=== PATIENT | female | born 1990 | race African-American/Black ===

== ENCOUNTER → 2020-04-22 11:40 | Outpatient (BNVA) | payer OTHER, SELFPAY | PROVIDERS: Visit Provider Internal Medicine Gastroenterology | DX: Z76.89 Persons encountering health services in other specified circumstances (principal) ==

== ENCOUNTER 2020-07-16 07:25 | Day surgery (SDC) | payer OTHER, SELFPAY ==
[2020-07-10 10:05] VITALS: BMI 18.0
--- NOTE | 2020-07-14 14:53 | P.CONAN_ITS ---
Documented by User: Bonnie Burgos 07/14/20 14:54 HPI - Anesthesia Eval Consult details Narrative: 30yo F for Upper Endoscopy PMFSH Active Problems Active Problems: All Active Problems (Updated 07/10/20 @ 10:08 by Marie Alcantar) Gastroparesis (Acute) Past Medical History Medical History (Updated 07/10/20 @ 10:08 by Marie Alcantar) Anemia Asthma Depression DVT (deep venous thrombosis) GERD (gastroesophageal reflux disease) History of anxiety History of COVID-19 History of headache Hx of bipolar disorder Peptic ulcer Thyroid disease Family History Family History (Updated 04/22/20 @ 11:44 by Anai Bucio [facility]) Mother Anemia Vitamin D deficiency Carpal tunnel syndrome Father No problems noted. Maternal Grandmother COPD (chronic obstructive pulmonary disease) Asthma Arthritis CHF (congestive heart failure) Surgical History Surgical History (Updated 07/10/20 @ 09:55 by Marie Alcantar) History of esophagogastroduodenoscopy History of gastric surgery Social History Social History (Updated 07/10/20 @ 09:53 by Marie Alcantar) Smoking Status: Never smoker Use of substances other than those prescribed or required for medical reasons: Yes Substance Use Type: Marijuana Substance Use Type Other:: medical marijuana Substance Use Frequency: Daily Advance Directives Information Provided: No Recently lost weight without trying: Yes Meds Allergies Allergy/AdvReac Type Severity Reaction Status Date / Time lactose Allergy Intermediate stomach Verified 04/22/20 11:42 pain, constipation lamotrigine [From Lamictal] AdvReac Intermediate rash Verified 04/22/20 11:42 Home Medications Medication Instructions Recorded Confirmed Last Taken Type albuterol sulfate [ProAir HFA] 2 puff INHALATION QID PRN 07/10/20 07/10/20 Unknown History aripiprazole 1 tab PO BEDTIME 07/10/20 07/10/20 Unknown History buspirone 1 tab PO TID 07/10/20 07/10/20 Unknown History carbamazepine 1 cap PO BID 07/10/20 07/10/20 Unknown History ferrous sulfate 1 tab PO DAILY 07/10/20 07/10/20 Unknown History metoclopramide HCl 1 tab PO QID 07/10/20 07/10/20 Unknown History mirtazapine 15 mg PO QAM 07/10/20 07/10/20 Unknown History Exam Exam Date and Time: July 14, 2020 1453 Height,Weight and Vital Signs: Height 5 ft 3 in Weight 46.266 kg Assessment and Plan Assessment Anesthesia Assessment: Chart Reviewed Documented by User: Lashon Camp 07/16/20 07:50 [facility] Past Medical History Medical History (Updated 07/10/20 @ 10:08 by Marie Alcantar) Anemia Asthma Depression DVT (deep venous thrombosis) GERD (gastroesophageal reflux disease) History of anxiety History of COVID-19 History of headache Hx of bipolar disorder Peptic ulcer Thyroid disease Family History Family History (Updated 04/22/20 @ 11:44 by Anai Bucio [facility]) Mother Anemia Vitamin D deficiency Carpal tunnel syndrome Father No problems noted. Maternal Grandmother COPD (chronic obstructive pulmonary disease) Asthma Arthritis CHF (congestive heart failure) Surgical History Surgical History (Updated 07/10/20 @ 09:55 by Marie Alcantar) History of esophagogastroduodenoscopy History of gastric surgery Social History Social History (Updated 07/10/20 @ 09:53 by Marie Alcantar) Smoking Status: Never smoker Use of substances other than those prescribed or required for medical reasons: Yes Substance Use Type: Marijuana Substance Use Type Other:: medical marijuana Substance Use Frequency: Daily Advance Directives Information Provided: No Recently lost weight without trying: Yes Meds Allergies Allergy/AdvReac Type Severity Reaction Status Date / Time lactose Allergy Intermediate stomach Verified 04/22/20 11:42 pain, constipation lamotrigine [From Lamictal] AdvReac Intermediate rash Verified 04/22/20 11:42 Home Medications Medication Instructions Recorded Confirmed Last Taken Type albuterol sulfate [ProAir HFA] 2 puff INHALATION QID PRN 07/10/20 07/10/20 Unknown History aripiprazole 1 tab PO BEDTIME 07/10/20 07/10/20 Unknown History buspirone 1 tab PO TID 07/10/20 07/10/20 Unknown History carbamazepine 1 cap PO BID 07/10/20 07/10/20 Unknown History ferrous sulfate 1 tab PO DAILY 07/10/20 07/10/20 Unknown History metoclopramide HCl 1 tab PO QID 07/10/20 07/10/20 Unknown History mirtazapine 15 mg PO QAM 07/10/20 07/10/20 Unknown History Exam Airway Mallampati Class: I (Broken tooth laterally) TM Dist: >3cm Neck ROM: Full Heart: RRr Lungs: CTa BL Assessment and Plan Assessment Anesthesia Assessment: Anesthesia Plan Discussed and Chart Reviewed Final Anesthetic Review NPO: Yes ASA Class: II Final Preanesthetic Review: No Changes in Pt Med Stat and Consent Obtained/Reviewed Patient Risk: Intermediate Procedure Risk: Intermediate Anesthetic Plan Anesthetic Plan: MAC: Disposition: Standard PACU
[2020-07-16 07:46] LABS: UPreg QC Valid YES; Urine Pregnancy NEGATIVE (NEGATIVE)
--- NOTE | 2020-07-16 07:50 | P.HPSUR_ITS ---
Pre-Procedural Eval Section B Chief Complaint: Gastroparesis Relevant Family History (Specify if Yes): No Relevant Social History: Other (specify) (THC) Present Medications: see Short Stay Collaborative assessment Medical History: Significant History (Anemia Asthma Depression DVT (deep venous thrombosis) GERD (gastroesophageal reflux disease) History of anxiety History of COVID-19 History of headache Hx of bipolar disorder Peptic ulcer Thyroid diseas e) History of Previous Operations: Relevant previous surgery/procedure and date(s) (pyloric myotomy) Allergies: Allergies Allergy/AdvReac Type Severity Reaction Status Date / Time lactose Allergy Intermediate stomach Verified 04/22/20 11:42 pain, constipation lamotrigine [From Lamictal] AdvReac Intermediate rash Verified 04/22/20 11:42 Review of Systems Sugical H&P ROS: Negative: Constitution, Cardiovascular, Respiratory, Neurological, Psychiatric, Hem-Onc, Allergic/Immunologic, Gastrointestinal, Genitourinary, Musculoskeletal, Integumentary, Endocrine and Eyes/Ears/Nose/Throat Exam Surgical H&P Exam: Normal: HEENT, Normal: Heart, Normal: Lungs, Normal: Extremities, Normal: Abdomen, Normal: Skin and Normal: Neurological Plan Diagnosis/Plan: Unchanged I have reviewed the history and physical and performed a pertinent physical examination on my patient. No changes have occurred unless specified.
[2020-07-16 07:54] VITALS: BP 106/77; PULSE 63; RESP 16; TEMP 36.1; O2SAT 99
[2020-07-16] MEDS: Lactated Ringers 1,000 ML 100 ML IVCONT (08:01)
--- NOTE | 2020-07-16 09:03 | PM.OP ---
Brief Operative Note Date of Service: 07/16/20 Pre-op diagnosis: epigastric pain Post-op diagnosis: same Procedure: see op note Surgeon: Chloe Petty MD Anesthesia: MAC Estimated blood loss (mL): 0 Condition: stable Disposition: PACU
--- NOTE | 2020-07-16 09:03 | W.PM.OPN ---
Operative Note Operative Note Date of Service: 07/16/20 Narrative: Procedure Description: EGD FLEXIBLE TRANSORAL UPPER GASTROINTESTINAL ENDOSCOPY UPPER ENDOSCOPY Consent: Indications for the procedure and potential complications of bleeding, perforation, reaction to medications and missed diagnosis were discussed with the patient and informed consent was obtained. Instrument: Olympus GIF H 190 J mid size upper endoscope Monitoring: Vital signs and clinical assessment, continuous EKG monitoring, Pulse oximetry, Carbon Dioxide monitoring and blood pressure monitoring were done throughout the procedure. Procedure: The patient was placed in the left lateral decubitis position and pre-procedure medications were administered and a bite block was placed. The endoscope was inserted into the mouth and advanced under direct vision to the third part of duodenum. A careful inspection was made as the upper endoscope was withdrawn including a retroflexed examination of the proximal stomach; Findings and interventions are described below. Findings: Larynx:normal Esophagus: GE junction at 34 cm, diaphragm hiatus at 37 cm, consistent with 3 cm sliding hiatal hernia, mild esophagitis at GEJ, bx taken from gEJ and random esophagus Stomach: Normal mucosa Biopsies were obtained. Grade 2 flap valve on retroflexed examination of the cardia. Pyloric balloon dilated across gastric outlet 19 mm with resistance felt, no tear noted. Reduced gastric motility Duodenum: Normal bulb and descending duodenum, bx taken Intervention: Biopsies as noted above Impression/Findings: hiatal hernia esophagitis gastroparesis PLAN: await bx results low fiber and low fat diet, small meals avoid overating
[2020-07-16 09:16] VITALS: BP 98/69; PULSE 119; RESP 16; TEMP 36.2; O2SAT 93
[2020-07-16 09:31] VITALS: BP 107/42; PULSE 83; RESP 16; O2SAT 96
[2020-07-16] MEDS: Acetaminophen 325 MG TABLET 650 MG PO (09:34)
[2020-07-16 09:46] VITALS: BP 101/71; PULSE 74; RESP 16; TEMP 36.2; O2SAT 98
== END 2020-07-16 10:19 | disposition home or self-care (01) ==
PROVIDERS: Nurse Practitioner; Visit Provider Internal Medicine Gastroenterology
PROC: (CPT 43245; principal; 2020-07-16 08:30)
DX: K31.84 Gastroparesis (principal); K44.9 Diaphragmatic hernia without obstruction or gangrene; K20.90 Esophagitis, unspecified without bleeding; K21.9 Gastro-esophageal reflux disease without esophagitis; F32.9 Major depressive disorder, single episode, unspecified; J45.909 Unspecified asthma, uncomplicated; Z79.899 Other long term (current) drug therapy; Z87.11 Personal history of peptic ulcer disease; Z86.16 Personal history of COVID-19; Z86.718 Personal history of other venous thrombosis and embolism
CPT/HCPCS: 43245; 43239; 81025; 88305; 88342; C1726

== ENCOUNTER → 2020-07-29 08:31 | Outpatient (BNVA) | payer OTHER, SELFPAY | PROVIDERS: PCP Internal Medicine; Visit Provider Internal Medicine Gastroenterology ==

== ENCOUNTER → 2021-05-22 09:31 | Outpatient (BNVA) | payer OTHER, MEDICAID, SELFPAY | PROVIDERS: PCP Internal Medicine; Visit Provider Internal Medicine Gastroenterology ==

== ENCOUNTER 2023-01-14 10:46 | Outpatient (AMB) | payer OTHER, SELFPAY ==
--- NOTE | 2023-01-14 10:46 | A.OFFVIS_ITS ---
Intake Intake Visit Reasons: follow up Intake Note: Grisel presents as a video call today as a follow up. Allergies lactose Allergy (Intermediate, Verified 01/14/23 10:46) stomach pain, constipation lamotrigine [From Lamictal] Adverse Reaction (Intermediate, Verified 01/14/23 10:46) rash HPI follow up HPI Details 32 yr old f with hx of idiopathic gastro paresis, provoked DVT, mood disorder, hypothyroidism, bipolar d/o, migraines being called for f/u. RECAP: I had seen her at [facility] for gastroparesis 2018 ?idiopathic vs autoimmune (KENA 65 pos) she had lap pyloric gastroplasty 03/219 she had long recovery after the procedure she feels surgery has helped overall but not cured her 100% she has issues struggling to eat she feels nausea every day, helped by THC her appetite feels poor, like body doesn;'t want it hunger gives her pain in epigastrium, better when she eats food she still has early satiety she feels food getting stuck in throat she still takes buspar and it helped her anxiety, mirtazepine helps as well she is also on carbamazepine? and daren fraga has been dealing with depression and anxiety she has alternating bowel habit going between constipation or diarrhea, she had miscarriage 11/2020 and since then she felt the gastroparesis got triggered she never felt any benefit from rifaxmin I repeated EGD 06/2020 and did balloon dilation of gastric outlet, small hiatal hernia noted INTERIM: she is again but doing better with nutritional support she is 20 weeks right now she has been having burping and some acid relfux no abdominal pain she is taking famotidine 40 mg OD overall she is very happy this IMPRESSION: Gastroparesis, again, but doing pretty well this time around PLAN: 1/ can increase famotidine to 40 mg bID if needed, GERD precautions PFSH Medical History Anemia Asthma Depression DVT (deep venous thrombosis) GERD (gastroesophageal reflux disease) History of anxiety History of COVID-19 History of headache Hx of bipolar disorder Peptic ulcer Thyroid disease Surgical History History of esophagogastroduodenoscopy History of gastric surgery Family History Mother Anemia Vitamin D deficiency Carpal tunnel syndrome Father No problems noted. Maternal Grandmother COPD (chronic obstructive pulmonary disease) Asthma Arthritis CHF (congestive heart failure) Social History Household Members: Significant Other and Children Alcohol intake: current Alcohol intake frequency: does not drink Substance Use Type: Marijuana Telehealth Telehealth Location of provider rendering services: practice address Patient Identification confirmed using: Name, : Yes Telehealth method: video Patient verbally consented to treatment: Yes Patient verbally consented to billing insurance company: Yes Patient informed of any privacy concerns related to visit: Yes Minutes spent on Phone/Video with Pt.: 6 Coding Level of Care Code Tele Est Pt Level 2 (47472)
== END 2023-01-14 13:01 | disposition home or self-care (01) ==
LOC: HO.HGI 10:46
PROVIDERS: PCP Internal Medicine; Visit Provider Internal Medicine Gastroenterology
DX: K31.84 Gastroparesis (principal)
CPT/HCPCS: 99212

== ENCOUNTER → 2023-01-14 10:46 | Outpatient (BNVA) | payer OTHER, SELFPAY | PROVIDERS: PCP Internal Medicine; Visit Provider Internal Medicine Gastroenterology ==

== ENCOUNTER 2023-06-27 11:15 | Outpatient (AMB) | payer OTHER, SELFPAY ==
--- NOTE | 2023-06-27 11:16 | MHC.OFFVIS ---
Intake Intake Visit Reasons: 6 month follow up Intake Note: Grisel presents as a video call today for her 6 month follow up. CC: Constipation, Loss of appetite, denies pains in her stomach. Splitting Machine Tender Required: No Allergies lactose Allergy (Intermediate, Verified 06/27/23 11:17) stomach pain, constipation lamotrigine [From Lamictal] Adverse Reaction (Intermediate, Verified 06/27/23 11:17) rash HPI 6 month follow up HPI Details 33 yr old f with hx of idiopathic gastroparesis, provoked DVT, mood disorder, hypothyroidism, bipolar d/o, migraines being called for f/u. RECAP: I had seen her at [facility] for gastroparesis 2018 ?idiopathic vs autoimmune (KENA 65 pos) she had lap pyloric gastroplasty 03/219 she had long recovery after the procedure she feels surgery has helped overall but not cured her 100% she has issues struggling to eat she feels nausea every day, helped by THC her appetite feels poor, like body doesn;'t want it hunger gives her pain in epigastrium, better when she eats food she still has early satiety she feels food getting stuck in throat she still takes buspar and it helped her anxiety, mirtazepine helps as well she is also on carbamazepine? and daren fraga has been dealing with depression and anxiety she has alternating bowel habit going between constipation or diarrhea, she had miscarriage 11/2020 and since then she felt the gastroparesis got triggered she never felt any benefit from rifaxmin I repeated EGD 06/2020 and did balloon dilation of gastric outlet, small hiatal hernia noted INTERIM: she had another c section, some growth restriction with the baby, but recovering well first child has weakness on the left side, and getting OT she has been eating better coping better with gastroparesis weight has been going down, appetite not so good, constipation as well occ nausea, no vomiting no joint pains no abdominal pain, no chest pain she admits to depression she has been on lexapro for about a month IMPRESSION: Gastroparesis, better poor appetite and weight loss, suspect this is due to SSRI --she says the mirtazepine and buspar combo worked really well for her in the past PLAN: 1/ she will d/w BHN abt going back on mirtazepinr and buspar, if ongoing issues then EGD, maybe imaging as well -chack TSH and nutrients PFSH Medical History DVT (deep venous thrombosis) Anemia GERD (gastroesophageal reflux disease) Peptic ulcer Asthma History of COVID-19 Thyroid disease History of anxiety Depression History of headache Hx of bipolar disorder Surgical History (Updated 06/27/23 @ 11:16 by NANCY Valdez) H/O section History of gastric surgery History of esophagogastroduodenoscopy Family History Mother Anemia Vitamin D deficiency Carpal tunnel syndrome Father No problems noted. Maternal Grandmother COPD (chronic obstructive pulmonary disease) Asthma Arthritis CHF (congestive heart failure) Social History Household Members: Significant Other and Children Alcohol intake: current Alcohol intake frequency: does not drink Substance Use Type: Marijuana Assessment & Plan Assessment & Plan (1) Gastroparesis: Code(s): K31.84 - Gastroparesis Plan: IMPRESSION: Gastroparesis, better poor appetite and weight loss, suspect this is due to SSRI --she says the mirtazepine and buspar combo worked really well for her in the past PLAN: 1/ she will d/w BHN abt going back on mirtazepinr and buspar, if ongoing issues then EGD, maybe imaging as well Telehealth Telehealth Location of provider rendering services: practice address Location of patient: address on file Patient Identification confirmed using: Name, : Yes Telehealth method: video Patient verbally consented to treatment: Yes Patient verbally consented to billing insurance company: Yes Patient informed of any privacy concerns related to visit: Yes Minutes spent on Phone/Video with Pt.: 8 Coding Level of Care Code Tele Est Pt Level 3 (00439) Diagnoses Gastroparesis K31.84
== END 2023-06-27 13:06 | disposition home or self-care (01) ==
LOC: HO.HGI 11:15
PROVIDERS: PCP Internal Medicine; Visit Provider Internal Medicine Gastroenterology
DX: K31.84 Gastroparesis (principal)
CPT/HCPCS: 99213

== ENCOUNTER → 2023-06-27 11:15 | Outpatient (BNVA) | payer OTHER, SELFPAY | PROVIDERS: PCP Internal Medicine; Visit Provider Internal Medicine Gastroenterology ==

== ENCOUNTER 2023-10-31 10:34 | Outpatient (AMB) | payer OTHER, SELFPAY ==
--- NOTE | 2023-10-31 10:37 | A.OFFVIS_ITS ---
Vital Signs 10/31/23 10:38 Height 5 ft 3 in Weight 97 lb 0.054 oz BMI 17.2 BP 112/68 Blood Pressure Location Lt brachial Position Sitting Pulse 88 Intake Visit Reasons: 4 month f/u Intake Note: Panasia presents in the office as a 4 month follow up. CC: She is concerned of her weight loss. Her norm is constipation on and off. Calcine Furnace Loader Required: No Allergies lactose Allergy (Intermediate, Verified 10/31/23 10:42) stomach pain, constipation lamotrigine [From Lamictal] Adverse Reaction (Intermediate, Verified 10/31/23 10:42) rash HPI HPI 4 month f/u: Details: 33 yr old f with hx of idiopathic gastroparesis, provoked DVT, mood disorder, hypothyroidism, bipolar d/o, migraines being seen for f/u. RECAP: I had seen her at [facility] for gastroparesis 2018 ?idiopathic vs autoimmune (KENA 65 pos) she had lap pyloric gastroplasty 03/219 she had long recovery after the procedure she feels surgery has helped overall but not cured her 100% she has issues struggling to eat she feels nausea every day, helped by THC her appetite feels poor, like body doesn;'t want it hunger gives her pain in epigastrium, better when she eats food she still has early satiety she feels food getting stuck in throat she still takes buspar and it helped her anxiety, mirtazepine helps as well she is also on carbamazepine and abilifscot oquendo has been dealing with depression and anxiety she has alternating bowel habit going between constipation or diarrhea, she had miscarriage 11/2020 and since then she felt the gastroparesis got triggered she never felt any benefit from rifaxmin I repeated EGD 06/2020 and did balloon dilation of gastric outlet, small hiatal hernia noted INTERIM: depression is worse back pain is worse weight is not going up, per chart last weight 2020-- 102# --at 97# today going for physical therapy not working she has 3 kids -15 ,1 year and 5 months she is back to eating now, had good nutritional input no abdominal pain mild nausea-not stopping her to eat she just increased mirtazepine to 15 mg EXAM: GENERAL: The patient is thin VITAL SIGNS:see workflow HEENT: Nonicteric sclerae, PERRLA, EOMI. Oropharynx clear. Moist mucous membranes. Conjunctivae appear well perfused. No thyroid mass. CHEST: Chest wall is nontender. HEART: Regular rate and rhythm without murmurs. LUNGS: Clear to auscultation bilaterally. ABDOMEN: Soft, positive bowel sounds, nontender, no organomegaly.no flank tenderness SKIN: No rash, no excessive bruising, petechiae, or purpura. NEUROLOGIC: Cranial nerves II-XII intact without motor/sensory deficit. Psych: normal affect IMPRESSION: Gastroparesis, better, no active GI sx poor appetite and weight loss, suspect this is due to her bad depression PLAN: 1/ no active GI issues, but depression is significant, sjust had mirtazepine increased, she can d/w psych about adding marinol or megestrol [facility] Medical History DVT (deep venous thrombosis) Anemia GERD (gastroesophageal reflux disease) Peptic ulcer Asthma History of COVID-19 Thyroid disease History of anxiety Depression History of headache Hx of bipolar disorder Surgical History H/O section History of gastric surgery History of esophagogastroduodenoscopy Family History Mother Anemia Vitamin D deficiency Carpal tunnel syndrome Father No problems noted. Maternal Grandmother COPD (chronic obstructive pulmonary disease) Asthma Arthritis CHF (congestive heart failure) Social History Household Members: Significant Other and Children Alcohol intake: current Alcohol intake frequency: does not drink Substance Use Type: Marijuana Physical Exam Vital Signs: Last Vital Signs Pulse 88 10/31/23 10:38 BP 112/68 10/31/23 10:38 BMI result Body Mass Index 17.2 Assessment & Plan Assessment & Plan (1) Failure to thrive in adult: Code(s): R62.7 - Adult failure to thrive Category: Medical Plan: see above Coding Level of Care Code Est Pt Level 3 (01994) Diagnoses Failure to thrive in adult R62.7
[2023-10-31 10:38] VITALS: BP 112/68; PULSE 88; BMI 17.2
== END 2023-10-31 11:04 | disposition home or self-care (01) ==
PROVIDERS: PCP Internal Medicine; Visit Provider Internal Medicine Gastroenterology
DX: R62.7 Adult failure to thrive (principal)
CPT/HCPCS: 99213

== ENCOUNTER → 2023-10-31 10:34 | Outpatient (BNVA) | payer OTHER, SELFPAY | PROVIDERS: PCP Internal Medicine; Visit Provider Internal Medicine Gastroenterology | DX: R62.7 Adult failure to thrive (principal) | CPT/HCPCS: 99212 ==

== ENCOUNTER 2024-12-10 14:51 | Outpatient (AMB) | payer OTHER, SELFPAY ==
--- NOTE | 2024-12-10 14:51 | A.OFFVIS_ITS ---
Intake Visit Reasons: 6m f/u Intake Note: Grisel presents as a telehealth 6 month follow up telehealth. CC Past week she has been nausea but no vomiting. She said it is from the belching. Denies pains in the stomach or other GI symptoms. Data Governance Consultant Required: No Allergies lactose Allergy (Intermediate, Verified 12/10/24 14:52) stomach pain, constipation lamotrigine (From Lamictal) Adverse Reaction (Intermediate, Verified 12/10/24 14:52) rash HPI HPI 6m f/u: Details: 34 yr old f with hx of idiopathic gastroparesis, provoked DVT, mood disorder, hypothyroidism, bipolar d/o, migraines being called for f/u. RECAP: I had seen her at [facility] for gastroparesis 2018 ?idiopathic vs autoimmune (KENA 65 pos) she had lap pyloric gastroplasty 03/219 she had long recovery after the procedure she feels surgery has helped overall but not cured her 100% she has issues struggling to eat she feels nausea every day, helped by THC her appetite feels poor, like body doesn;'t want it hunger gives her pain in epigastrium, better when she eats food she still has early satiety she feels food getting stuck in throat she still takes buspar and it helped her anxiety, mirtazepine helps as well she is also on carbamazepine and abilify se has been dealing with depression and anxiety she has alternating bowel habit going between constipation or diarrhea, she had miscarriage 11/2020 and since then she felt the gastroparesis got triggered she never felt any benefit from rifaxmin I repeated EGD 06/2020 and did balloon dilation of gastric outlet, small hiatal hernia noted INTERIM: depression is much worse she has been getting DBT stomach is doing well overall she has been gaining weight she has felt help with marinol she is on mirtazpeine 30 mg daily overall she feels amazing she says EXAM: GENERAL: The patient is thin, good color, breathing easily PLAN: 1/ no active GI issues, doing much better physically and mentally f/u prn PFSH Medical History (Updated 04/23/24 @ 18:37 by Nahum Connolly MD) DVT (deep venous thrombosis) Anemia GERD (gastroesophageal reflux disease) Peptic ulcer Asthma History of COVID-19 Thyroid disease History of anxiety Depression History of headache Hx of bipolar disorder Surgical History H/O section History of gastric surgery History of esophagogastroduodenoscopy Family History Mother Anemia Vitamin D deficiency Carpal tunnel syndrome Father No problems noted. Maternal Grandmother COPD (chronic obstructive pulmonary disease) Asthma Arthritis CHF (congestive heart failure) Social History Household Members: Significant Other and Children Alcohol intake: current Alcohol intake frequency: does not drink Substance Use Type: Marijuana Telehealth Telehealth Telehealth Platform: [employer] Location of provider rendering services: practice address Location of patient: address on file Patient Identification confirmed using: Name, : Yes Telehealth method: video Patient verbally consented to treatment: Yes Patient verbally consented to billing insurance company: Yes Patient informed of any privacy concerns related to visit: Yes Minutes spent on Phone/Video with Pt.: 7 Assessment & Plan Assessment & Plan (1) Failure to thrive in adult: Code(s): R62.7 - Adult failure to thrive Category: Medical Plan: as above Coding Level of Care Code Tele Est Pt Level 3 (62358) Diagnoses Failure to thrive in adult R62.7
--- OUTSIDE RECORDS SUMMARY | 2024-12-10 16:31 | XMS_ITS | Clinical Summary ---
Author Organization [facility], Address [address] [place] [address] [place] [address] Phone Care Team Providers Care Deep Fat Fry Cook Name Role Phone Madyd Trivedi MD Primary Care Provider [phone] Allergies Active Allergy Reactions Criticality Noted Date Comments Lactose 04/21/2022 Other reaction(s): abd pain,diarrhea Lamotrigine Other (see comments) 04/21/2022 RASH Medications QUEtiapine (SEROquel) 25 MG tablet Take 25 mg by mouth every night 2 Active prochlorperazin e (COMPAZINE) 25 MG suppository UNWRAP AND INSERT 1 SUPPOSITORY RECTALLY EVERY 12 HOURS 2 Active pantoprazole (PROTONIX) 20 MG EC tablet Take 20 mg by mouth 2 Active ondansetron (Zofran) 4 MG tablet Take 4 mg by mouth 2 Active metoclopramide (REGLAN) 5 MG tablet via gynecology, 0 Refills, Maintenance, 10/13/21 20:49:00 EDT, Partial fill upon patient request if the prescription is for a schedule II opioid drug. 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 Vitamin D deficiency 12/01/2009 Immunizations Immunization Administration Dates Next Due HPV, Quadrivalent 04/07/2015 Hep B, Unspecified 06/09/2009 Influenza Whole 02/04/2009 Influenza, Unspecified 02/19/2021,2018,02/17/2018,01/20/2017,09/2016,02/18/2015,12/30/2014,05/20/2011,01/01/20 10 MMR 04/07/2015,1991 Pneumococcal Polysaccharide 11/30/2016 Tdap 08/18/2021,11/26/2009 Social History Tobacco Use Types Packs/Day Years Used Date Smoking Tobacco: Never Assessed Comments Unknown Sex and Gender Information Value Date Recorded Sex Assigned at Not on file Legal Sex Female 11:28 AM EDT Gender Identity Not on file Sexual Orientation Not on file Plan of Treatment Health Maintenance Due Date Last Done Comments Hepatitis B Vaccine (2 of 3 - 19+ 3-dose series) 07/07/2009 06/09/2009 Influenza Vaccine (#1) 2024 , 01/19/2019, 02/17/2018, Additional history exists Pneumococcal Vaccine: Peds (0 to 5 Years) and At-Risk Patients (6 to 49 Years) Aged Out 11/30/2016 No longer eligi ble based on patient's age to complete this topic Insurance [employer] [facility] Medicaid Care Teams Deep Fat Fry Cook Relationship Specialty Start Date End Date Maddy Trivedi MD [address] [address] PCP - General Internal Medicine 12/31/21
--- OUTSIDE RECORDS SUMMARY | 2024-12-10 16:31 | XMS_ITS | Clinical Summary ---
Author Organization [facility] it Address [address] [place] [address] Care Team Providers Care Business Continuity Global Director Name Role Phone Chinyere Hercules Primary Care Provider Surgical History Surgery Date Site/Laterality Comments OTHER SURGICAL HISTORY PROCEDURE: DENIES PREVIOUS SURGERY ESOPHAGOGASTRODUODENOSCOPY 10/11/08 PROCEDURE: ME ESOPHAGOGASTRODUODENOSCOPY TRANSORAL DIAGNOSTIC; COMMENT: normal ESOPHAGOGASTRODUODENOSCOPY 04/05/2005 PROCEDURE: ME EGD TRANSORAL BIOPSY SINGLE/MULTIPLE; COMMENT: Dr Borden - [place]ana, superficial gastric ulcer Family History Relation Name Status Comments Brother Alive Father Alive Mother Alive Sister 1 Alive Sister 2 Alive Social History Tobacco Use Types Packs/Day Years Used Date Smoking Tobacco: Never Smokeless Tobacco: Never Alcohol Use Standard Drinks/Week Comments No 0 (1 standard drink = 0.6 oz pur e alcohol) Comments Unknown Sex and Gender Information Value Date Recorded Sex Assigned at Not on file Legal Sex Female 10:15 AM EST Gender Identity Not on file Sexual Orientation Not on file Obstetrics History Plan of Treatment Health Maintenance Due Date Last Done Comments COVID-19 Vaccine (#1) 1995 DTaP,Tdap,and Td Vaccines (1 - Tdap) 2009 Cervical Cancer Screening: P ap Smear 2011 HPV Vaccines (2 - 3-dose series) 05/05/2015 04/07/20 15 Hepatitis B Vaccines (2 of 3 - 19+ 3-dose series) 05/05/2015 04/07/2015 HIV Screening 05/17/2023 Hepatitis C Screening 05/17/2023 Social Influencers of Health Screening 05/17/2023 Depression Screening 04/18/2024 Influenza Vaccine (#1) 2024 12/30/2014 MMR Vaccines Aged Out 04/07/2015 No longer eligi ble based on patient's age to complete this topic HIB Vaccines Aged Out No longer eligi ble based on patient's age to complete this topic Hepatitis A Vaccines Aged Out No long er eligible based on patient's age to complete this topic IPV Vaccines Aged Out No longer eligi ble based on patient's age to complete this topic Meningococcal ACWY Vaccine Aged Out N o longer eligible based on patient's age to complete this topic Meningococcal B Vaccine Aged Out No l onger eligible based on patient's age to complete this topic Pneumococcal Vaccine: Pediat rics (0 to 5 Years) and At-Risk Patients (6 to 49 Years) Aged Out No longer eligi ble based on patient's age to complete this topic RSV Immunization Patients Un nick 20 months Aged Out No longer eligible b ased on patient's age to complete this topic Varicella Vaccines Aged Out No longer eligible based on patient's age to complete this topic Care Teams Business Continuity Global Director Relationship Specialty Start Date End Date Chinyere Hercules DO [address] [place], [place] PCP - General 09/27/13
== END 2024-12-10 16:23 | disposition home or self-care (01) ==
LOC: HO.HGI 14:51
PROVIDERS: PCP Internal Medicine; Visit Provider Internal Medicine Gastroenterology
DX: R62.7 Adult failure to thrive (principal)
CPT/HCPCS: 99213